=== PATIENT | female | born 1985 | race Caucasian/White ===

== ENCOUNTER 2017-08-28 12:02 | Inpatient (IN) | payer MEDICAID ==
[2017-08-28] VITALS (8 sets, daily range): BP systolic 109–135; BP diastolic 58–77
[~2017-08-28] VITALS: Ht 172.7 cm; Wt 60.0 kg
[2017-08-28 12:54] LABS: URINE BILIRUBIN - DIPSTICK NEGATIVE (NEGATIVE); URINE BLOOD DIPSTICK TRACE-INTACT (NEGATIVE); URINE COLOR YELLOW; URINE GLUCOSE - DIPSTICK 500 mg/dL (NEGATIVE); URINE KETONE >=80 mg/dL (NEGATIVE); URINE LEUK ESTERASE NEGATIVE (NEGATIVE); URINE NITRITE - DIPSTICK NEGATIVE (Negative); URINE PH 5.5 (4.5-8.0); URINE PROTEIN - DIPSTICK 30 mg/dL (NEG-TRACE); URINE SPECIFIC GRAVITY >=1.030; URINE UROBILINOGEN - DIPSTICK 0.2 E.U./dL (0.2)
[2017-08-28 12:56] LABS: URINE CLARITY HAZY
[2017-08-28 13:03] LABS: URINE RBC 0-2 RBC/hpf (0-5); URINE SQUAMOUS EPITHELIAL CELL MANY EPI/hpf (0-FEW); URINE WBC 0-2 WBC/hpf (0-5)
[2017-08-28 13:47] LABS: HEMATOCRIT 43.3 % (37.0-47.0); HEMOGLOBIN 14.1 g/dl (12.0-16.0); IMMATURE GRANULOCYTES 0.5 % (0.0-1.0); MEAN CELL VOLUME 107.7 fL CALC (80.0-100.0); MEAN CORPUSCULAR HGB 35.1 pG CALC (26.0-32.0); MEAN CORPUSCULAR HGB CONC 32.6 g/L CALC (32.0-36.0); NEUT# 17.49 thou/uL (2.00-7.15); RED BLOOD COUNT 4.02 mill/uL (4.20-5.60); RED CELL DISTRI WIDTH 11.9 % (11.5-15.5)
[2017-08-28 14:03] LABS: ALKALINE PHOSPHATASE 158 u/l (38-126); BILIRUBIN, TOTAL 0.7 mg/dL (0.0-1.4); BUN 15 mg/dL (7-17); BUN/CREATININE RATIO 19 (12-20 (CALC)); CALCIUM 9.4 mg/dL (8.4-10.2); CHLORIDE 105 mmol/l (95-108); CREATININE 0.8 mg/dL (0.5-1.0); GFR > 60 ML/MIN (>=60 (CALC)); GFR FOR AFR.AMER. > 60 ML/MIN (>=60 (CALC)); GLUCOSE 356 mg/dL (65-105); LIPASE 29 u/l (23-300); SGOT/AST 57 u/l (14-36); SGPT/ALT 64 u/l (9-52); SODIUM 142 mmol/l (137-146); TOTAL PROTEIN 7.8 g/dL (6.3-8.2)
[2017-08-28 14:03] LABS: BARBITURATES NEGATIVE (NEGATIVE); COCAINE NEGATIVE (NEGATIVE); METHADONE NEGATIVE (NEGATIVE); OXCYCODONE NEGATIVE (NEGATIVE); TETRAHYDROCANNABIONOL NEGATIVE (NEGATIVE); TRICYLIC ANTIDEPRESSANTS NEGATIVE (NEGATIVE)
[2017-08-28] MEDS ORDERED: LANTUS100 UNIT/M SC (14:10)
[2017-08-28] MEDS ORDERED: NOVOLIN 70/30 SC (14:13)
[2017-08-28] MEDS ORDERED: NOVOLIN R RELION SC (14:14)
[2017-08-28 14:20] LABS: POTASSIUM 5.6 mmol/l (3.5-5.1)
[2017-08-28 14:21] LABS: ANION GAP 38 (6-22 (CALC)); CARBON DIOXIDE 5 mmol/l (22-30)
[2017-08-28 20:00] LABS: ANION GAP 24 (6-22 (CALC)); BUN 9 mg/dL (7-17); BUN/CREATININE RATIO 15 (12-20 (CALC)); CALCIUM 7.7 mg/dL (8.4-10.2); CHLORIDE 111 mmol/l (95-108); CREATININE 0.6 mg/dL (0.5-1.0); GFR > 60 ML/MIN (>=60 (CALC)); GFR FOR AFR.AMER. > 60 ML/MIN (>=60 (CALC)); GLUCOSE 159 mg/dL (65-105); MAGNESIUM 1.4 mg/dL (1.6-2.3); POTASSIUM 4.8 mmol/l (3.5-5.1); SODIUM 139 mmol/l (137-146)
[2017-08-28 20:04] LABS: CARBON DIOXIDE 9 mmol/l (22-30)
[2017-08-29] VITALS (11 sets, daily range): BP systolic 119–142; BP diastolic 46–81
[2017-08-29 05:08] LABS: HEMATOCRIT 35.7 % (37.0-47.0); HEMOGLOBIN 12.3 g/dl (12.0-16.0); MEAN CELL VOLUME 102.3 fL CALC (80.0-100.0); MEAN CORPUSCULAR HGB 35.2 pG CALC (26.0-32.0); MEAN CORPUSCULAR HGB CONC 34.5 g/L CALC (32.0-36.0); RED BLOOD COUNT 3.49 mill/uL (4.20-5.60); RED CELL DISTRI WIDTH 11.9 % (11.5-15.5)
[2017-08-29 05:26] LABS: ALBUMIN 2.8 g/dL (3.2-5.0); ANION GAP 11 (6-22 (CALC)); BUN 6 mg/dL (7-17); BUN/CREATININE RATIO 11 (12-20 (CALC)); CALCIUM 7.6 mg/dL (8.4-10.2); CARBON DIOXIDE 20 mmol/l (22-30); CHLORIDE 111 mmol/l (95-108); CREATININE 0.5 mg/dL (0.5-1.0); GFR > 60 ML/MIN (>=60 (CALC)); GFR FOR AFR.AMER. > 60 ML/MIN (>=60 (CALC)); GLUCOSE 158 mg/dL (65-105); MAGNESIUM 2.3 mg/dL (1.6-2.3); POTASSIUM 3.9 mmol/l (3.5-5.1); SODIUM 138 mmol/l (137-146)
[2017-08-29] MEDS ORDERED: VITAMIN B-121000 MCG PO (09:29)
== END 2017-08-29 10:45 | disposition home or self-care (01) | DRG 639 ==
LOC: ED 12:02 → ED-I 13:43 → ED 14:27 → ICU 14:28
PROVIDERS: Family Medicine; ADMIT Internal Medicine; ATTEND Internal Medicine
PROC: 02HV33Z Insertion of Infusion Device into Superior Vena Cava, Percutaneous Approach (ICD-10-PCS; principal; 2017-08-28)
PROC: 3E0234Z Introduction of Serum, Toxoid and Vaccine into Muscle, Percutaneous Approach (ICD-10-PCS; 2017-08-29)
PROC: 3E0234Z Introduction of Serum, Toxoid and Vaccine into Muscle, Percutaneous Approach (ICD-10-PCS; 2017-08-29)
DX: E11.10 Type 2 diabetes mellitus with ketoacidosis without coma (principal); D75.89 Other specified diseases of blood and blood-forming organs; F17.210 Nicotine dependence, cigarettes, uncomplicated; Z79.4 Long term (current) use of insulin; Z23 Encounter for immunization
CPT/HCPCS: J1650

== ENCOUNTER 2017-12-10 09:11 | Inpatient (IN) | payer OTHER ==
[2017-12-10] VITALS (16 sets, daily range): BP systolic 98–127; BP diastolic 53–66
[~2017-12-10] VITALS: Ht 172.7 cm; Wt 59.0 kg
[~2017-12-10 09:11] MED LIST: LANTUS100 UNIT/M SC; NOVOLIN 70/30 SC; NOVOLIN R RELION SC; VITAMIN B-121000 MCG PO
--- NOTE | 2017-12-10 09:26 | NUR ---
PT TO ROOM FOR EXAM
[2017-12-10 10:10] LABS: HEMATOCRIT 42.7 % (37.0-47.0); HEMOGLOBIN 14.4 g/dl (12.0-16.0); IMMATURE GRANULOCYTES 0.5 % (0.0-1.0); MEAN CELL VOLUME 105.7 fL CALC (80.0-100.0); MEAN CORPUSCULAR HGB 35.6 pG CALC (26.0-32.0); MEAN CORPUSCULAR HGB CONC 33.7 g/L CALC (32.0-36.0); NEUT# 6.43 thou/uL (2.00-7.15); RED BLOOD COUNT 4.04 mill/uL (4.20-5.60); RED CELL DISTRI WIDTH 12.3 % (11.5-15.5)
--- NOTE | 2017-12-10 10:10 | NUR ---
REPORT RECVD FROM BACILIO STALLINGS. EKG COMPLETED. LR IVF RUNNING IN 20G IV ON RIGHT WRIST. PT RESTING W/FRIEND AT BEDSIDE. CALLBELL W/IN REACH.
[2017-12-10 10:20] LABS: ALBUMIN 5.2 g/dL (3.2-5.0); ALKALINE PHOSPHATASE 188 u/l (38-126); BILIRUBIN, TOTAL 0.6 mg/dL (0.0-1.4); BUN 13 mg/dL (7-17); BUN/CREATININE RATIO 19 (12-20 (CALC)); CALCIUM 9.9 mg/dL (8.4-10.2); CHLORIDE 104 mmol/l (95-108); CREATININE 0.7 mg/dL (0.5-1.0); GFR > 60 ML/MIN (>=60 (CALC)); GFR FOR AFR.AMER. > 60 ML/MIN (>=60 (CALC)); GLUCOSE 391 mg/dL (65-105); LIPASE 27 u/l (23-300); SGOT/AST 71 u/l (14-36); SGPT/ALT 57 u/l (9-52); SODIUM 139 mmol/l (137-146); TOTAL PROTEIN 7.8 g/dL (6.3-8.2)
[2017-12-10 10:20] LABS: URINE BILIRUBIN - DIPSTICK NEGATIVE (NEGATIVE); URINE BLOOD DIPSTICK NEGATIVE (NEGATIVE); URINE COLOR YELLOW; URINE GLUCOSE - DIPSTICK 500 mg/dL (NEGATIVE); URINE KETONE >=80 mg/dL (NEGATIVE); URINE LEUK ESTERASE NEGATIVE (NEGATIVE); URINE NITRITE - DIPSTICK NEGATIVE (Negative); URINE PH 5.5 (4.5-8.0); URINE PROTEIN - DIPSTICK TRACE mg/dL (NEG-TRACE); URINE SPECIFIC GRAVITY >=1.030; URINE UROBILINOGEN - DIPSTICK 0.2 E.U./dL (0.2)
[2017-12-10 10:25] LABS: URINE CLARITY CLEAR
[2017-12-10 10:26] LABS: POTASSIUM 5.2 mmol/l (3.5-5.1)
[2017-12-10 10:27] LABS: ANION GAP 34 (6-22 (CALC)); CARBON DIOXIDE 6 mmol/l (22-30)
[2017-12-10] MEDS ORDERED: BUSPAR5 MG PO (10:52)
--- NOTE | 2017-12-10 11:25 | NUR ---
UNABLE TO ESTABLISH A 2ND IV. PT STATES SHE HAS A PIERCE AND IS CURLED UP INTO A BALL, TO HID HER FACE. LIGHTS DIMMED, NOISE REDUCED. WILL CONTINUE TO MONITOR
--- NOTE | 2017-12-10 11:41 | NUR ---
Admission Note Report Given to: MAYELIN Transported by: Wheelchair X Stretcher Transported with: X Nurse Transporter X Patent IV O2 X Legal Executive Assistant
--- NOTE | 2017-12-10 11:52 | NUR ---
female pt received to ICU bed 5 via stretcher accompanied by Fariba Lizama, RN in stable condition; ambulatory to scale, bathroom then bed with steady gait; admission assessment completed at this time; pt alert and oriented; c/c of "vomiting since 3 am"; admits to headache rating 09/07; pt states improvement from 17/09; resp even and unlabored; lungs clear bilat; skin color wnl; ra; hr reg; pulses present; no edema noted; sr on monitor; abd soft with bs present; pt reports last bm 12/09/17; voiding clear yellow urine without complication; #20 in lfa patent with lr bolus infusing without complication; insulin gtt at 3 units/hr; no redness or edema noted at site; plan of care/ hourly accuchecks explained; call light within reach; will contine to monitor closely
--- NOTE | 2017-12-10 12:01 | NUR ---
accucheck of 282; insulin gtt titrated as per protocol; will continue to monitor
--- NOTE | 2017-12-10 12:11 | NUR ---
PT TRANSFERED TO ICU #5. RN @ BEDSIDE. PT AMBULATED FROM STRETCHER TO STRETCHER WITHOUT DIFFICULTY.
--- NOTE | 2017-12-10 12:20 | NUR ---
PT ARRIVES FROM ER VIA STRETCHER, ALERT AND ORIENTED X 3. PT AMBULATORY TO BED FROM STRETCHER. BS 282 UPON ARRIVAL, INSULIN DRIP TITRATED DOWN TO 3 UNITS HOURLY. PT STATES HEADACHE AND NAUSEA ARE MUCH IMPROVED AFTER MEDS GIVEN IN ER.
--- NOTE | 2017-12-10 13:20 | NUR ---
KIRSTNI Diop contacted in regards to orders/meds/fluids; orders to be placed
[2017-12-10 13:54] LABS: ANION GAP 29 (6-22 (CALC)); BUN 12 mg/dL (7-17); BUN/CREATININE RATIO 20 (12-20 (CALC)); CALCIUM 8.8 mg/dL (8.4-10.2); CHLORIDE 110 mmol/l (95-108); CREATININE 0.6 mg/dL (0.5-1.0); GFR > 60 ML/MIN (>=60 (CALC)); GFR FOR AFR.AMER. > 60 ML/MIN (>=60 (CALC)); GLUCOSE 161 mg/dL (65-105); MAGNESIUM 1.6 mg/dL (1.6-2.3); SODIUM 141 mmol/l (137-146)
[2017-12-10 13:58] LABS: CARBON DIOXIDE 7 mmol/l (22-30)
--- NOTE | 2017-12-10 14:00 | NUR ---
Dr Chakraborty and KIRSTIN Goff at bedside
[2017-12-10 14:15] LABS: CHOLESTEROL HDL RATIO 3.2 (<4.4 (CALC))
--- NOTE | 2017-12-10 14:17 | NUR ---
awake; offers no complaints; offers no complaints of headache; no n/v noted; iv patent; no redness or edema noted at site; sr on monitor; po fluids provided; call light within reach; will continue to monitor
--- NOTE | 2017-12-10 15:14 | NUR ---
accucheck 101; Dr Chakraborty notified; for change of ivf; orders to be placed
--- NOTE | 2017-12-10 16:07 | NUR ---
asleep; easily aroused; offers no complaints; iv patent; accucheck 110; insulin gtt cont at 1 unit/hr; no redness or edema noted at site; sr on monitor; call light within reach; will continue to monitor
[2017-12-10 17:46] LABS: POTASSIUM 4.7 mmol/l (3.5-5.1)
--- NOTE | 2017-12-10 18:05 | NUR ---
awake in bed; visitors at bedside; no distress noted; pt offers no complaints; denies headache; no n/v noted; iv patent; no redness or edema noted at site; insulin gtt cont per protocol; sr on monitor; bed in lowest position; call light within reach
--- NOTE | 2017-12-10 18:43 | NUR ---
KIRSTIN Diop at bedside
--- NOTE | 2017-12-10 18:45 | NUR ---
RECEIVED REPORT FROM BACILIO ALCOCER. KIRSTIN GIBBS, AT BEDSIDE DISCUSSING WITH PT PLAN OF CARE.
--- NOTE | 2017-12-10 19:30 | NUR ---
SIGNIFICANT OTHER IN PT ROOM TO VISIT. NO DISTRESS NOTED, DENIES N/V OR PAIN, SR ON MONITOR, HR STABLE, AFEBRILE, SKIN IS WARM AND DRY, ACYANOTIC, ASSISTED PT TO BSC, STEADY GAIT NOTED, LUNGS ELY ARE CLEAR ON AUSCULTATION, STRONG HEAD TURBINE OPERATOR AND PULSES, DENIES FEELING WEAK, OR LIGHTHEADEDNESS, ABD IS SOFT, NONTENDER TO TOUCH, BS X4QUAD, IV SITE IS FREE OF REDNESS OR EDEMA, INFUSING INSULIN DRIP AT 2UNITS/HR PER PROTOCOL, LAST ACCU CHECK 158, VOIDED 800CC OF CLEAR YELLOW URINE, NO BM NOTED AT THIS TIME. EXPLAINED CALL GARCIA, DIET, MED SCHEDULE AND PLAN OF CARE VOICES UNDERSTANDING, WILL CONTINUE TO MONITOR CALL GARCIA AT REACH.
--- NOTE | 2017-12-10 20:14 | NUR ---
NOTIFIED KIRSTIN GIBBS, OF INSULIN DRIP D'C BY PHARMACY BECAUSE OF SLIDING SCALE ORDER AND DISCUSSED PT STATUS AND PREVIOUS LAB RESULTS, ORDERS TO NOTIFY HER OF ELECTROLYTES LAB RESULTS TO BE DRAWN AT 2100.
--- NOTE | 2017-12-10 20:45 | NUR ---
MIX HOUSE TENDER IN PT ROOM DRAWING BLOOD SAMPLE.
--- NOTE | 2017-12-10 21:00 | NUR ---
FINGERSTICK ACCU CHECK 145, PT REPORTS NO COMPLAINTS, DENIES NEEDS, STATES IS HUNGRY AND WANTS TO EAT AND DRINK, WILL NOTIFY KIRSTIN GIBBS. D5NS INFUSING WITHOUT DIFFICULTY AT 150ML/HR PER EMAR, IV SITE IS FREE OF S/S OF INFILTRATION.
--- NOTE | 2017-12-10 21:45 | NUR ---
ELECTROLYTES RESULTS CALLED TO KIRSTIN GIBBS. ORDER TO ADMINISTER 20 UNITS NOVOLIN 70/30 SC X1 DOSE NOW, AND COVER PER SLIDING SCALE DOSE.
--- NOTE | 2017-12-10 22:10 | NUR ---
ADMNISTERED 20 UNITS OF NOVOLIN 70/30 SC PER EMAR, PT DENIES N/V, STATES "I AM VERY HUNGRY, PROVIDED SOME WATER AND ICE CHIPS, TOLERATED WELL, PROVIDED S TURKEY SANDWICH, TOLERATING WELL AT THIS TIME WILL CONTINUE TO MONITOR. ENCOURAGED TO CALL IF NEEDED. CALL GARCIA AT REACH.
--- NOTE | 2017-12-10 22:23 | NUR ---
PT CONTINUES DENYING ANY N/V, TOLERATED SNACK WELL, WILL CONTINUE TO MONITOR.
[2017-12-11] VITALS (12 sets, daily range): BP systolic 96–121; BP diastolic 56–77
--- NOTE | 2017-12-11 01:44 | NUR ---
PT APPEARS TO BE SLEEPING IN BED WITH EYES CLOSED, AROUSES TO VERBAL STIMULI, VOICES NO COMPLAINTS, RESP ARE EVEN AND UNLABORED, VSS, DENIES N/V OR PAIN, DENIES ASSISTANCE NEEDED AT THIS TIME.
--- NOTE | 2017-12-11 04:12 | NUR ---
PT VOICES NO COMPLAINTS, MONITOR SHOWS SR, VSS, D5NS INFUSING WITHOUT DIFFICULTY, WILL CONTINUE TO MONITOR.
[2017-12-11 05:12] LABS: HEMATOCRIT 36.9 % (37.0-47.0); HEMOGLOBIN 12.7 g/dl (12.0-16.0); IMMATURE GRANULOCYTES 0.2 % (0.0-1.0); MEAN CELL VOLUME 103.4 fL CALC (80.0-100.0); MEAN CORPUSCULAR HGB 35.6 pG CALC (26.0-32.0); MEAN CORPUSCULAR HGB CONC 34.4 g/L CALC (32.0-36.0); NEUT# 2.56 thou/uL (2.00-7.15); RED BLOOD COUNT 3.57 mill/uL (4.20-5.60); RED CELL DISTRI WIDTH 12.3 % (11.5-15.5)
[2017-12-11 05:22] LABS: ANION GAP 15 (6-22 (CALC)); BUN 8 mg/dL (7-17); BUN/CREATININE RATIO 15 (12-20 (CALC)); CALCIUM 8.4 mg/dL (8.4-10.2); CARBON DIOXIDE 15 mmol/l (22-30); CHLORIDE 113 mmol/l (95-108); CREATININE 0.5 mg/dL (0.5-1.0); GFR > 60 ML/MIN (>=60 (CALC)); GFR FOR AFR.AMER. > 60 ML/MIN (>=60 (CALC)); GLUCOSE 214 mg/dL (65-105); POTASSIUM 4.1 mmol/l (3.5-5.1); SODIUM 139 mmol/l (137-146)
--- NOTE | 2017-12-11 06:48 | NUR ---
D5NS ON HOLD D/T LAB GLUCOSE 214, SWITCHED TO NS 125ML/HR, PT OFFERS NO COMPLAINTS, DRINKING PO FLUIDS WITHOUT DIFFICULTY, DENIES PAIN, NAUSEA OR VOMITING. ENCOURAGED TO CALL IF NEEDED.
--- NOTE | 2017-12-11 07:16 | NUR ---
pt noted asleep; no distress noted; easily arousable to verbal stimuli; assessment completed at this time; pt alert and oriented x3; complaints of headache rating 10/10; denies n/v; resp even and unlabored; lungs clear throughout; skin color wnl; ra; hr reg; sr on monitor; pulses present; no edema noted; abd soft with bs present; no bm noted per screenplay writer; pt tolerating po intake well; voiding without pain or burning; clear yellow urine noted; #20 in lfa patent with ns infusing at 125cc/hr; no redness or edema noted at site; accucheck of 306; insulin to be administered; plan of care/ am meds explained; pt encouraged to use call light; will continue to monitor closely
--- NOTE | 2017-12-11 08:05 | NUR ---
awake; medicated with tylenol for complaints of headache; eating breakfast at this time; no n/v noted; sr on monitor; iv patent; no redness or edema noted at site; call light within reach; will continue to monitor
--- NOTE | 2017-12-11 08:59 | NUR ---
resting on right side with eyes closed; no distress noted; sr on monitor; will continue to monitor
--- NOTE | 2017-12-11 09:54 | NUR ---
resting in supine position with eyes closed; no distress noted; resp even and unlabored; sr on monitor; iv patent; no redness or edema noted at site; call light within reach; will continue to monitor
--- NOTE | 2017-12-11 10:20 | NUR ---
accucheck 247; Dr Olson at bedside and aware of accucheck results
--- NOTE | 2017-12-11 11:24 | NUR ---
awake; visitor at bedside; pt tolerating lunch; will continue to monitor
--- NOTE | 2017-12-11 12:00 | NUR ---
pt tolerated 100% of lunch; denies and pain/n/v; pt eager to go home; father at bedside
--- NOTE | 2017-12-11 12:15 | NUR ---
discharge instructions reviewed with pt and father; Dr Chakraborty office card provided; accucheck reassessed at 197; am meds/meds administered reviewed; pt aware to recheck accucheck at dinner and medicate with insulin accordingly; #20 removed from lfa with catheter intact;
--- NOTE | 2017-12-11 12:25 | NUR ---
Discharge instructions given. Patient verbalizes understanding of same. Discharged in stable condition via Wheelchair to Home with father. All belongings sent with pt.
== END 2017-12-11 12:25 | disposition home or self-care (01) | DRG 639 ==
LOC: ED 09:11 → ED-I 11:03 → ED 11:14 → ICU 11:15
PROVIDERS: Family Medicine; Nurse Practitioner Family; ADMIT Internal Medicine; ATTEND Internal Medicine
DX: E10.10 Type 1 diabetes mellitus with ketoacidosis without coma (principal); E86.0 Dehydration; F17.210 Nicotine dependence, cigarettes, uncomplicated; F41.9 Anxiety disorder, unspecified; Z79.4 Long term (current) use of insulin; Z91.19 Patient's noncompliance with other medical treatment and regimen

== ENCOUNTER 2019-03-30 19:36 | Emergency (ER) | payer SELFPAY ==
[~2019-03-30] VITALS: Ht 172.7 cm; Wt 64.0 kg
[~2019-03-30 19:36] MED LIST changes: +BUSPAR5 MG PO
[2019-03-30] MEDS ORDERED: ADDERALL30 MG PO (20:47)
[2019-03-30 20:50] VITALS: BP 131/88
== END 2019-03-30 20:50 | disposition home or self-care (01) | DRG 605 ==
LOC: ED 19:36
DX: S61.210A Laceration without foreign body of right index finger without damage to nail, initial encounter (principal); F17.210 Nicotine dependence, cigarettes, uncomplicated; W26.8XXA Contact with other sharp object(s), not elsewhere classified, initial encounter; Y92.009 Unspecified place in unspecified non-institutional (private) residence as the place of occurrence of the external cause

== ENCOUNTER 2019-11-07 19:18 | Emergency (ER) | payer SELFPAY ==
[~2019-11-07] VITALS: Ht 172.7 cm; Wt 68.0 kg
[~2019-11-07 19:18] MED LIST changes: +ADDERALL30 MG PO
[2019-11-07 20:32] LABS: HEMATOCRIT 39.6 % (37.0-47.0); HEMOGLOBIN 13.9 g/dl (12.0-16.0); IMMATURE GRANULOCYTES 0.2 % (0.0-5.0); MEAN CELL VOLUME 97.8 fL CALC (80.0-100.0); MEAN CORPUSCULAR HGB 34.3 pG CALC (26.0-32.0); MEAN CORPUSCULAR HGB CONC 35.1 g/L CALC (32.0-36.0); NEUT# 2.97 thou/uL (2.00-7.15); RED BLOOD COUNT 4.05 mill/uL (4.20-5.60); RED CELL DISTRI WIDTH 11.7 % (11.5-15.5)
[2019-11-07 20:33] LABS: URINE BLOOD DIPSTICK LARGE (NEGATIVE); URINE COLOR YELLOW; URINE GLUCOSE - DIPSTICK >=1000 mg/dL (NEGATIVE); URINE KETONE 15 mg/dL (NEGATIVE); URINE LEUK ESTERASE NEGATIVE (NEGATIVE); URINE NITRITE - DIPSTICK NEGATIVE (Negative); URINE PROTEIN - DIPSTICK NEGATIVE (NEG-TRACE); URINE SPECIFIC GRAVITY 1.025; URINE UROBILINOGEN - DIPSTICK 0.2 E.U./dL (0.2)
[2019-11-07 20:35] LABS: URINE BILIRUBIN - DIPSTICK NEGATIVE (NEGATIVE)
[2019-11-07 20:42] LABS: URINE SQUAMOUS EPITHELIAL CELL FEW EPI/hpf (0-FEW)
[2019-11-07 20:49] LABS: ALBUMIN 4.4 g/dL (3.2-5.0); ALKALINE PHOSPHATASE 109 u/l (38-126); AMYLASE 34 u/l (30-110); BILIRUBIN, TOTAL 0.4 mg/dL (0.0-1.4); BUN 10 mg/dL (7-17); BUN/CREATININE RATIO 21 (12-20 (CALC)); CREATININE 0.5 mg/dL (0.5-1.0); GFR > 60 ML/MIN (>=60 (CALC)); GFR FOR AFR.AMER. > 60 ML/MIN (>=60 (CALC)); LIPASE 42 u/l (23-300); POTASSIUM 3.7 mmol/l (3.5-5.1); SGOT/AST 25 u/l (14-36); SODIUM 135 mmol/l (137-146); TOTAL PROTEIN 6.9 g/dL (6.3-8.2)
[2019-11-07 20:53] LABS: ANION GAP 18 (6-22 (CALC)); CARBON DIOXIDE 24 mmol/l (22-30); CHLORIDE 97 mmol/l (95-108)
[2019-11-07] MEDS ORDERED: CEPHALEXIN500 MG PO (21:53)
[2019-11-07 22:24] LABS: BARBITURATES NEGATIVE (NEGATIVE); COCAINE NEGATIVE (NEGATIVE); METHADONE NEGATIVE (NEGATIVE); OXCYCODONE NEGATIVE (NEGATIVE); TETRAHYDROCANNABIONOL NEGATIVE (NEGATIVE); TRICYLIC ANTIDEPRESSANTS NEGATIVE (NEGATIVE)
[2019-11-07] MEDS ORDERED: FLEXERIL PO (23:24)
[2019-11-07] MEDS ORDERED: ULTRAM50 M1 PO (23:24)
[2019-11-08] MEDS ORDERED: CLONIDINE0.1 MG PO (00:43)
[2019-11-08 01:03] VITALS: BP 148/98
== END 2019-11-08 01:01 | disposition home or self-care (01) | DRG 556 ==
LOC: ED 19:18
PROVIDERS: Emergency Medicine
DX: M79.18 Myalgia, other site (principal); N39.0 Urinary tract infection, site not specified; I10 Essential (primary) hypertension; E11.9 Type 2 diabetes mellitus without complications; F17.210 Nicotine dependence, cigarettes, uncomplicated; Z79.4 Long term (current) use of insulin
CPT/HCPCS: Q9967

== ENCOUNTER 2020-02-26 | Emergency (ER) | payer BC ==
[~2020-02-26] MED LIST changes: +CEPHALEXIN500 MG PO; +CLONIDINE0.1 MG PO; +FLEXERIL PO; +ULTRAM50 M1 PO
[2020-02-26] MEDS ORDERED: HUMALOG100 MG/ML IN (17:22)
[2020-02-26 17:43] LABS: HEMATOCRIT 40.3 % (37.0-47.0); HEMOGLOBIN 13.6 g/dl (12.0-16.0); IMMATURE GRANULOCYTES 0.4 % (0.0-5.0); MEAN CELL VOLUME 100.2 fL CALC (80.0-100.0); MEAN CORPUSCULAR HGB 33.8 pG CALC (26.0-32.0); MEAN CORPUSCULAR HGB CONC 33.7 g/dL CAL (32.0-36.0); NEUT# 6.19 thou/uL (2.00-7.15); RED BLOOD COUNT 4.02 mill/uL (4.20-5.60); RED CELL DISTRI WIDTH 12.7 % (11.5-15.5)
[2020-02-26 18:00] LABS: ALBUMIN 4.7 g/dL (3.2-5.0); ALKALINE PHOSPHATASE 108 u/l (38-126); ANION GAP 19 (6-22 (CALC)); BUN 16 mg/dL (7-17); BUN/CREATININE RATIO 35 (12-20 (CALC)); CARBON DIOXIDE 21 mmol/l (22-30); CHLORIDE 97 mmol/l (95-108); CREATININE 0.5 mg/dL (0.5-1.0); GFR > 60 ML/MIN (>=60 (CALC)); GFR FOR AFR.AMER. > 60 ML/MIN (>=60 (CALC)); POTASSIUM 4.4 mmol/l (3.5-5.1); SODIUM 132 mmol/l (137-146); TOTAL PROTEIN 7.9 g/dL (6.3-8.2)
[2020-02-26 18:07] LABS: URINE BILIRUBIN - DIPSTICK NEGATIVE (NEGATIVE); URINE BLOOD DIPSTICK NEGATIVE (NEGATIVE); URINE COLOR YELLOW; URINE GLUCOSE - DIPSTICK >=1000 mg/dL (NEGATIVE); URINE KETONE 15 mg/dL (NEGATIVE); URINE LEUK ESTERASE NEGATIVE (NEGATIVE); URINE NITRITE - DIPSTICK NEGATIVE (Negative); URINE PH 5.5 (4.5-8.0); URINE PROTEIN - DIPSTICK NEGATIVE (NEG-TRACE); URINE UROBILINOGEN - DIPSTICK 0.2 E.U./dL (0.2)
[2020-02-26 18:14] LABS: BILIRUBIN, TOTAL 0.7 mg/dL (0.0-1.4); SGOT/AST 45 u/l (14-36)
== END 2020-02-26 20:05 | disposition home or self-care (01) | DRG 639 ==
DX: E10.65 Type 1 diabetes mellitus with hyperglycemia (principal); M79.18 Myalgia, other site; F17.210 Nicotine dependence, cigarettes, uncomplicated; Z79.4 Long term (current) use of insulin

== ENCOUNTER 2020-03-16 11:57 | Inpatient (IN) | payer BC ==
[2020-03-16] VITALS (11 sets, daily range): BP systolic 118–137; BP diastolic 59–83
[~2020-03-16] VITALS: Ht 172.7 cm; Wt 69.0 kg
[~2020-03-16 11:57] MED LIST changes: +HUMALOG100 MG/ML IN
--- NOTE | 2020-03-16 12:10 | NUR ---
PT TO ROOM FOR EXAM
--- NOTE | 2020-03-16 12:15 | NUR ---
PT ASSESSED. PT REPORTS ABDOMINAL PAIN STARTING THIS MORNING, NAUSEA AND VOMITING. PT IS DIABETIC AND HER GLUCOMETER READ "HIGH" THIS MORNING. PT AO X 3, SKIN PINK WARM AND DRY. CHANGED TO GOWN. MONITORS IN PLACE
--- NOTE | 2020-03-16 12:30 | NUR ---
PT MEDICATED FOR NAUSEA
--- NOTE | 2020-03-16 12:53 | NUR ---
NO FURTHER COMPLAINTS OF NAUSEA
[2020-03-16 13:04] LABS: HEMATOCRIT 44.9 % (37.0-47.0); HEMOGLOBIN 14.5 g/dl (12.0-16.0); IMMATURE GRANULOCYTES 0.4 % (0.0-5.0); MEAN CELL VOLUME 104.9 fL CALC (80.0-100.0); MEAN CORPUSCULAR HGB 33.9 pG CALC (26.0-32.0); MEAN CORPUSCULAR HGB CONC 32.3 g/dL CAL (32.0-36.0); NEUT# 8.3 thou/uL (2.00-7.15); RED BLOOD COUNT 4.28 mill/uL (4.20-5.60); RED CELL DISTRI WIDTH 11.9 % (11.5-15.5)
[2020-03-16 13:06] LABS: URINE BILIRUBIN - DIPSTICK NEGATIVE (NEGATIVE); URINE BLOOD DIPSTICK NEGATIVE (NEGATIVE); URINE COLOR YELLOW; URINE GLUCOSE - DIPSTICK >=1000 mg/dL (NEGATIVE); URINE KETONE >=80 mg/dL (NEGATIVE); URINE LEUK ESTERASE NEGATIVE (NEGATIVE); URINE NITRITE - DIPSTICK NEGATIVE (Negative); URINE PROTEIN - DIPSTICK NEGATIVE (NEG-TRACE); URINE UROBILINOGEN - DIPSTICK 0.2 E.U./dL (0.2)
[2020-03-16 13:24] LABS: ALBUMIN 4.6 g/dL (3.2-5.0); BILIRUBIN, TOTAL 0.6 mg/dL (0.0-1.4); BUN 14 mg/dL (7-17); BUN/CREATININE RATIO 19 (12-20 (CALC)); CHLORIDE 94 mmol/l (95-108); CREATININE 0.8 mg/dL (0.5-1.0); GFR > 60 ML/MIN (>=60 (CALC)); GFR FOR AFR.AMER. > 60 ML/MIN (>=60 (CALC)); LIPASE 57 u/l (23-300); SGOT/AST 35 u/l (14-36); SODIUM 132 mmol/l (137-146); TOTAL PROTEIN 7.1 g/dL (6.3-8.2)
[2020-03-16 13:34] LABS: ALKALINE PHOSPHATASE 168 u/l (38-126); AMYLASE < 30 u/l (30-110); ANION GAP 34 (6-22 (CALC)); POTASSIUM 5.3 mmol/l (3.5-5.1)
[2020-03-16 13:35] LABS: CARBON DIOXIDE 9 mmol/l (22-30)
[2020-03-16 13:36] LABS: MYOGLOBIN 16 ng/mL (0 - 62)
--- NOTE | 2020-03-16 14:02 | NUR ---
INSULIN BOLUS GIVEN AND INSULIN DRIP STARTED
--- NOTE | 2020-03-16 14:41 | NUR ---
REPORT GIVEN TO D[facility] RIBERA ICU.
[2020-03-16] MEDS ORDERED: METFORMIN500 M2 PO (14:46)
[2020-03-16] MEDS ORDERED: GABAPENTIN100 MG PO (14:47)
--- NOTE | 2020-03-16 14:57 | NUR ---
ACCUCHECK DONE. READING "HIGH"
--- NOTE | 2020-03-16 15:37 | NUR ---
ORDERS RECIEVED FROM .
--- NOTE | 2020-03-16 15:55 | NUR ---
ACCUCHECK 357. DECREASED INSULIN DRIP TO 4ML/HR. PT TAKEN VIA STRETCHER, MONITOR IN PLACE TO ICU
--- NOTE | 2020-03-16 16:00 | NUR ---
PT ADMITTED TO ICU BED 4 FROM ED FOR DX:DKA VIA STRETCHER. PT TRANSFERRED SELF TO BED VIA SLOW STEADY GAIT. PT A&0X4, ABLE TO MAKE NEEDS KNOWN. PT DENIES CP, SOB OR DISTRESS AT THIS TIME. 22GTO RHAND/SL FLUSHED WITHOUT DIFFICULTY, 24 TO RFA WITH INSULIN GTT @4ML/HR. BS 357. PT AFEBRILE, ST ON TELEMETRY, RESPIRATIONS EVEN/UNLABORED, SA02@100%RA, ABDOMEN SOFT, NON-TENDER, BSX4 WITH LBM 4-17-20. PT ORIENTED TO ROOM, UNIT AND CALL LIGHT. PT REMAINS NPO, CALL LIGHT IN REACH. WILL MONITOR.
--- NOTE | 2020-03-16 16:30 | NUR ---
PT ASSISTED TO BSC, VOIDED 1000ML CLEAR YELLOW URINE. PT TOLERATED WELL.
--- NOTE | 2020-03-16 17:22 | NUR ---
NOTIFIED [facility] ORDERS NOT IN JAN, ORIGINALLY FAXED AT [phone]. CALLED [facility], 4X NO ONE ANSWERED THE PHONE. NOTIFIED HOUSE SUP.
--- NOTE | 2020-03-16 17:30 | NUR ---
REFAXED ORDERS TO [facility].
--- NOTE | 2020-03-16 18:00 | NUR ---
LAB AT BEDSIDE FOR BLOOD DRAW.
[2020-03-16 18:22] LABS: BUN 15 mg/dL (7-17); BUN/CREATININE RATIO 23 (12-20 (CALC)); CREATININE 0.6 mg/dL (0.5-1.0); GFR > 60 ML/MIN (>=60 (CALC)); GFR FOR AFR.AMER. > 60 ML/MIN (>=60 (CALC)); POTASSIUM 4.4 mmol/l (3.5-5.1); SODIUM 138 mmol/l (137-146)
[2020-03-16 18:24] LABS: ANION GAP 22 (6-22 (CALC)); CARBON DIOXIDE 12 mmol/l (22-30); CHLORIDE 108 mmol/l (95-108)
--- NOTE | 2020-03-16 19:00 | NUR ---
PATIENT LAYS IN BED, SUPINE. AWAKE, ALERT AND ORIENTED X4. ON RA, SATS 100%, NO SOB NOTED. NURSING ASSESSMENT PERFORMED. DENIES NAUSEA, C/O OF SORE PAIN WHEN PALPATING RIB AREA ON HER SIDES AND ABDOMEN, NO TENDERNESS ON ABDOMEN AREA. R-H 22 G AND RFA 24G IV'S INTACT. POC FOR TONIGHT DISCUSSED, PATIENT UNDERSTANDS AND AGREES. AFEBRILE. SELF REPSOITIONS. CALL LIGHT WITHIN REACH.
--- NOTE | 2020-03-16 21:15 | NUR ---
PATIENT EDUACATED ON LOVENOX INJECTION, UNDERSTANDS AND AGREES. INSULIN DRIP TURNED BACK ON AT 2104 AFTER STOPPED FOR ONE HOUR AND AFTER BS CHECK. ICE PROVIDED. NO NEEDS AT THIS TIME. NO COMPLAINTS. CALL LIGHT WITHIN REACH.
--- NOTE | 2020-03-16 22:00 | NUR ---
[employer] COURTESY CLERK IN ROOM TO DRAW BLOOD.
[2020-03-16 22:30] LABS: ANION GAP 19 (6-22 (CALC)); BUN 12 mg/dL (7-17); BUN/CREATININE RATIO 25 (12-20 (CALC)); CARBON DIOXIDE 12 mmol/l (22-30); CHLORIDE 108 mmol/l (95-108); CREATININE 0.5 mg/dL (0.5-1.0); GFR > 60 ML/MIN (>=60 (CALC)); GFR FOR AFR.AMER. > 60 ML/MIN (>=60 (CALC)); SODIUM 134 mmol/l (137-146)
[2020-03-16 22:35] LABS: POTASSIUM 5.2 mmol/l (3.5-5.1)
--- NOTE | 2020-03-16 23:35 | NUR ---
PATIENT'S BS CHECKED. PATIENT AWAKENS EASILY WHEN SPOKEN TO, NO COMPLAINTS. INSULIN DRIP TITRATED ACCORDING TO PROTOCOL. CALL LIGHT WITHIN REACH.
[2020-03-17] VITALS (17 sets, daily range): BP systolic 119–166; BP diastolic 70–93
--- NOTE | 2020-03-17 02:05 | NUR ---
CATERING BARISTA IN ROOM FOR LABS. PATIENT IN NO ACUTE DISTRESS. CALL LIGHT WITHIN REACH.
[2020-03-17 02:27] LABS: BUN 11 mg/dL (7-17); BUN/CREATININE RATIO 24 (12-20 (CALC)); CHLORIDE 107 mmol/l (95-108); CREATININE 0.5 mg/dL (0.5-1.0); GFR > 60 ML/MIN (>=60 (CALC)); GFR FOR AFR.AMER. > 60 ML/MIN (>=60 (CALC)); SODIUM 134 mmol/l (137-146)
[2020-03-17 02:40] LABS: ANION GAP 12 (6-22 (CALC)); CARBON DIOXIDE 19 mmol/l (22-30); POTASSIUM 3.7 mmol/l (3.5-5.1)
--- NOTE | 2020-03-17 03:35 | NUR ---
BS TAKEN. PATIENT AWAKENS EASILY. ASKS WHAT HER BS IS AND ASKS IF SHE IS STILL ON THE INSULIN DRIP. ALL QUESTIONS ANSWERED. NO NEEDS AT THIS TIME. CALL LIGHT WITHIN REACH.
--- NOTE | 2020-03-17 05:44 | NUR ---
PATIENT BS CHECKED. PATIENT ASKED IF SHE WANTED TO GET UP TO THE BATHROOM, SHE REFUSED, CONTINUES TO SLEEP. NO ACUTE DISTRESS SHOWN. AFEBRILE. CALL LIGHT WITHIN REACH.
[2020-03-17 06:27] LABS: ANION GAP 12 (6-22 (CALC)); BUN 10 mg/dL (7-17); BUN/CREATININE RATIO 22 (12-20 (CALC)); CARBON DIOXIDE 19 mmol/l (22-30); CHLORIDE 106 mmol/l (95-108); CREATININE 0.4 mg/dL (0.5-1.0); GFR > 60 ML/MIN (>=60 (CALC)); GFR FOR AFR.AMER. > 60 ML/MIN (>=60 (CALC)); POTASSIUM 3.4 mmol/l (3.5-5.1); SODIUM 134 mmol/l (137-146)
--- NOTE | 2020-03-17 06:45 | NUR ---
RECIEVED REPORT FROM BACILIO JOHNSON. ASSUMED PT CARE.
--- NOTE | 2020-03-17 07:03 | NUR ---
CALLED LAB, ORDER FOR ADD ON A1C.
--- NOTE | 2020-03-17 07:30 | NUR ---
PT RESTING IN BED, ASSESSMENT COMPLETED, AFEBRILE. RESPIRATIONS EVEN/UNLABORED. 22G RH/SL FLUSHED WITHOUT DIFFICULTY . 24G RFA INFUSING D51/2NS @125ML/HR, TITRATED INSULIN GTT PER PROTOCOL FOR BS 155. PT REMAINS NPO WITH ICE CHIPS.PT DENIES CP, SOB OR DISTRESS AT THIS TIME. CALL LIGHT IN REACH, WILL MONITOR.
--- NOTE | 2020-03-17 08:30 | NUR ---
PT RESTING IN BED WITH EYES CLOSED. BS 163. NO TITRATION ON INSULIN GTT. NEEDED.
--- NOTE | 2020-03-17 09:38 | NUR ---
BS 139. LAB AT BEDSIDE FORM BLOOD DRAW.
[2020-03-17 10:13] LABS: ANION GAP 10 (6-22 (CALC)); BUN 9 mg/dL (7-17); BUN/CREATININE RATIO 23 (12-20 (CALC)); CARBON DIOXIDE 20 mmol/l (22-30); CHLORIDE 106 mmol/l (95-108); CREATININE 0.4 mg/dL (0.5-1.0); GFR > 60 ML/MIN (>=60 (CALC)); GFR FOR AFR.AMER. > 60 ML/MIN (>=60 (CALC)); POTASSIUM 3.5 mmol/l (3.5-5.1); SODIUM 133 mmol/l (137-146)
--- NOTE | 2020-03-17 10:55 | NUR ---
DR. HARE & NERI RUSSELL AT BEDSIDE FOR ASSESSMENT AND TO DISCUSS PLAN OF CARE. NEW ORDERS RECIEVED.
--- NOTE | 2020-03-17 11:30 | NUR ---
PT ASSISTED TO BSC, VOIDED 1200ML YELLOW URINE. PT TOLERATED WELL. DIETARY ON UNIT. LUNCH TRAY SET UP.
--- NOTE | 2020-03-17 12:00 | NUR ---
INSULIN GTT STOPPED.
--- NOTE | 2020-03-17 12:15 | NUR ---
PT COMPLAINT OF SORE THROAT, NOTED REDNESS AT BACK OF THROAT, DR. HARE NOTIFIED, NEW ORDERS RECIEVED.
--- NOTE | 2020-03-17 12:30 | NUR ---
PT THROAT SWABBED FOR STREP A, SENT TO LAB. PT TOLERATED WELL.
--- NOTE | 2020-03-17 13:20 | NUR ---
STREP A LAB BACK, NEGATIVE.
--- NOTE | 2020-03-17 13:58 | NUR ---
PT RESTING IN BED, WATCHING TV. PT NOTIFIED OF NEGATIVE STREP A RESULTS.
--- NOTE | 2020-03-17 15:45 | NUR ---
PT GIVEN SNACK, PER PT REQUEST. RESTING IN BED, DENIES CP, SOB OR DISTRESS AT THIS TIME. CALL LIGHT IN REACH. WILL MONITOR.
--- NOTE | 2020-03-17 16:38 | NUR ---
PT RESTING IN BED WITH EYES CLOSED, RESPIRATIONS EVEN/UNLABORED. CALL LIGHT IN REACH. WILL MONITOR.
--- NOTE | 2020-03-17 17:15 | NUR ---
NOTIFIED DR. HARE OF PT BS 319, AND PT COMPLAINT OF LLE PAIN OF 06/07. NEW ORDERS RECIEVED. CALL LIGHT IN REACH. WILL MONITOR.
--- NOTE | 2020-03-17 17:25 | NUR ---
DIETARY ON UNIT. DINNER TRAY SET UP.
--- NOTE | 2020-03-17 17:59 | NUR ---
PT ASSISTED TO BSC, VOIDED 1000ML CLEAR YELLOW URINE. PT TOLERATED WELL.
--- NOTE | 2020-03-17 19:00 | NUR ---
PATIENT ALERT AND ORIENTED X4, WATCHES TV. NURSING ASSESSMENT PERFORMED. ADMITS TO SORE THROAT WHICH SHE RECEIVED MEDICATION FOR EARLIER AND SHE REPORTS IT HAS HELPED. AFEBRILE, SR ON TELEMETRY. BP WNL. SATS GREATER THAN 95% ON RA, NO SOB NOTED. RFA IV INTACT, MEDICATIONS INFUSING PROPERLY, RH 22G IV TAKEN OUT DUE TO PATIENT COMPLAINS IT IS PAINFUL WHEN FLUSHING. POC FOR TONIGHT DISCUSSED, PATIENT UNDERSTANDS AND AGREES. SELF REPOSITIONS. REQUEST DIET YANETH DIAZ, PROVIDED. CALL LIGHT WITHIN REACH.
--- NOTE | 2020-03-17 20:10 | NUR ---
PATIENT PAYROLL BOOKKEEPER LIGHT TO REQUEST PEANUT BUTTER WITH CRACKERS, PROVIDED. CALL LIGHT WITHIN REACH.
--- NOTE | 2020-03-17 20:45 | NUR ---
PATIENT ABLE TO TOLERATE HER PO BEDTIME MEDICATIONS. LOVENOX AND INSULIN INJEVTIONS WELL. NO COMPLAINTS. NO NEEDS AT THIS TIME. CALL LIGHT WITHIN REACH.
[2020-03-18] VITALS (8 sets, daily range): BP systolic 145–163; BP diastolic 86–98
--- NOTE | 2020-03-18 00:45 | NUR ---
PATIENT RESTS WITH EYES CLOSED. NO ACUTE DSITRESS SHOWN. CALL LIGHT WITHIN REACH.
--- NOTE | 2020-03-18 04:20 | NUR ---
TEMP TAKEN, PATIENT AWAKENS REQUESTS TO GET UP TO USE BSC TO VOID. VOIDS. NOWLAYS BACK IN BED. NO ACUTE DISTRES SHOWN. NO COMPLAINTS. CALL LIGHT WITHIN REACH.
--- NOTE | 2020-03-18 06:27 | NUR ---
PATIENT GIVEN IV PEPCID. IV INTACT. PT REQUESTS A SNACK TO EAT, APPLESAUCE AND BAR PROVIDED, ICE WATER PROVIDED. CALL LIGHT WITHIN REACH
--- NOTE | 2020-03-18 07:40 | NUR ---
ACCUCHECK DONE- BLOOD SUGAR IS 421 ON GLUCOMETER, DR GILL NOTIFIED, NO NEW ORDERS AT THIS TIME
--- NOTE | 2020-03-18 08:00 | NUR ---
PT IN BED READING A BOOK AT THIS TIME. ASSESSED, ALERT AND ORIENTED X4. BLOOD PRESSURE 145/93 HR OF 76, NO EDEMA. PT IS MOBILE AND DENIES PAIN AT THIS TIME. WILL CONTINUE TO MONITOR FOR CHANGES.
--- NOTE | 2020-03-18 08:30 | NUR ---
DR GILL AT BEDSIDE, ORDERED 35 UNITS OF LEVEMIR FOR BLOOD GLUCOSE AT THIS TIME. ORDERED PT DISCHARGE HOME.
[2020-03-18] MEDS ORDERED: LEVEMIR FL100 UNIT/M SC (08:44)
--- NOTE | 2020-03-18 10:20 | NUR ---
DISCHARGE INSTRUCTIONS REVIEWED WITH PT, PT VERBALIZED UNDERSTANDING, HOME MEDICATIONS RETURNED. IV SITE DISCONTINUED, CATHETER TIP INTACT, SKIN INTACT, PT TOLERATED WELL.
--- NOTE | 2020-03-18 11:16 | NUR ---
Discharge instructions given. Patient verbalizes understanding of same. Discharged in stable condition via Wheelchair to Home with family. All belongings sent with pt.
== END 2020-03-18 11:16 | disposition home or self-care (01) | DRG 639 ==
LOC: ED 11:57 → ED-I 13:50 → ED 14:04 → ICU 14:05
PROVIDERS: Emergency Medicine; ADMIT Internal Medicine; ATTEND Internal Medicine
DX: E10.10 Type 1 diabetes mellitus with ketoacidosis without coma (principal); F17.210 Nicotine dependence, cigarettes, uncomplicated; R03.0 Elevated blood-pressure reading, without diagnosis of hypertension; F41.9 Anxiety disorder, unspecified; Z79.4 Long term (current) use of insulin
CPT/HCPCS: J1650

== ENCOUNTER 2020-05-28 19:16 | Emergency (ER) | payer BC ==
[~2020-05-28] VITALS: Ht 172.7 cm; Wt 72.0 kg
[~2020-05-28 19:16] MED LIST changes: +GABAPENTIN100 MG PO; +LEVEMIR FL100 UNIT/M SC; +METFORMIN500 M2 PO
[2020-05-28 21:15] VITALS: BP 146/85
== END 2020-05-28 21:23 | disposition home or self-care (01) | DRG 392 ==
LOC: ED 19:16
DX: K59.00 Constipation, unspecified (principal); E11.9 Type 2 diabetes mellitus without complications; F17.200 Nicotine dependence, unspecified, uncomplicated; Z79.4 Long term (current) use of insulin

== ENCOUNTER 2020-08-16 14:49 | Emergency (ER) | payer BC ==
[~2020-08-16] VITALS: Ht 172.7 cm; Wt 60.0 kg
[2020-08-16 15:39] LABS: HEMATOCRIT 39.9 % (37.0-47.0); HEMOGLOBIN 13.1 g/dl (12.0-16.0); IMMATURE GRANULOCYTES 0.3 % (0.0-5.0); MEAN CORPUSCULAR HGB 32.1 pG CALC (26.0-32.0); MEAN CORPUSCULAR HGB CONC 32.8 g/dL CAL (32.0-36.0); NEUT# 5.08 thou/uL (2.00-7.15); RED BLOOD COUNT 4.08 mill/uL (4.20-5.60); RED CELL DISTRI WIDTH 11.9 % (11.5-15.5)
[2020-08-16 15:40] LABS: URINE BILIRUBIN - DIPSTICK NEGATIVE (NEGATIVE); URINE BLOOD DIPSTICK NEGATIVE (NEGATIVE); URINE COLOR YELLOW; URINE GLUCOSE - DIPSTICK NEGATIVE (NEGATIVE); URINE KETONE TRACE mg/dL (NEGATIVE); URINE LEUK ESTERASE NEGATIVE (NEGATIVE); URINE PROTEIN - DIPSTICK NEGATIVE (NEG-TRACE); URINE SPECIFIC GRAVITY 1.025; URINE UROBILINOGEN - DIPSTICK 0.2 E.U./dL (0.2)
[2020-08-16 15:49] LABS: ALBUMIN 4.2 g/dL (3.2-5.0); ALKALINE PHOSPHATASE 90 u/l (38-126); BUN 8 mg/dL (7-17); BUN/CREATININE RATIO 16 (12-20 (CALC)); CHLORIDE 103 mmol/l (95-108); CREATININE 0.5 mg/dL (0.5-1.0); GFR > 60 ML/MIN (>=60 (CALC)); GFR FOR AFR.AMER. > 60 ML/MIN (>=60 (CALC)); POTASSIUM 3.6 mmol/l (3.5-5.1); SGOT/AST 33 u/l (14-36); SODIUM 138 mmol/l (137-146); TOTAL PROTEIN 6.8 g/dL (6.3-8.2)
[2020-08-16 15:57] LABS: MYOGLOBIN 13 ng/mL (0 - 62)
[2020-08-16 16:00] LABS: ANION GAP 11 (6-22 (CALC)); BILIRUBIN, TOTAL 0.3 mg/dL (0.0-1.4); CARBON DIOXIDE 28 mmol/l (22-30)
[2020-08-16 16:01] LABS: MEAN CELL VOLUME 97.8 fL CALC (80.0-100.0)
[2020-08-16 16:06] LABS: URINE NITRITE - DIPSTICK POSITIVE (Negative)
[2020-08-16 16:07] LABS: URINE BACTERIA MODERATE hpf; URINE EPITHELIAL CELLS FEW EPI/hpf (0-FEW)
[2020-08-16 16:32] LABS: TSH, 3RD GENERATION 2.46 uIU/mL (0.47 - 4.68)
[2020-08-16] MEDS ORDERED: KEFLEX500 M1 PO (17:01)
[2020-08-16 17:11] VITALS: BP 144/88
== END 2020-08-16 17:11 | disposition home or self-care (01) | DRG 880 ==
LOC: ED 14:49
PROVIDERS: Emergency Medicine
DX: F41.9 Anxiety disorder, unspecified (principal); N39.0 Urinary tract infection, site not specified; E11.9 Type 2 diabetes mellitus without complications; F17.210 Nicotine dependence, cigarettes, uncomplicated; B96.20 Unspecified Escherichia coli [E. coli] as the cause of diseases classified elsewhere; Z79.4 Long term (current) use of insulin

== ENCOUNTER 2022-02-17 11:01 | Inpatient (IN) | payer SELFPAY ==
[2022-02-17] VITALS (9 sets, daily range): BP systolic 112–169; BP diastolic 56–98
[~2022-02-17] VITALS: Ht 172.7 cm; Wt 59.0 kg
[~2022-02-17 11:01] MED LIST changes: +KEFLEX500 M1 PO
[2022-02-17 12:08] LABS: IMMATURE GRANULOCYTES 0.5 % (0.0-5.0); MEAN CORPUSCULAR HGB 34.1 pG CALC (26.0-32.0); MEAN CORPUSCULAR HGB CONC 32.7 g/dL CAL (32.0-36.0); NEUT# 14.82 thou/uL (2.00-7.15); RED BLOOD COUNT 4.81 mill/uL (4.20-5.60); RED CELL DISTRI WIDTH 11.7 % (11.5-15.5)
[2022-02-17 12:11] LABS: HEMATOCRIT 50.1 % (37.0-47.0); HEMOGLOBIN 16.4 g/dl (12.0-16.0); MEAN CELL VOLUME 104.2 fL CALC (80.0-100.0)
[2022-02-17 12:16] LABS: ALBUMIN 4.6 g/dL (3.2-5.0); ALKALINE PHOSPHATASE 132 u/l (38-126); BUN 9 mg/dL (7-17); BUN/CREATININE RATIO 10 (12-20 (CALC)); CHLORIDE 101 mmol/l (95-108); CREATININE 0.9 mg/dL (0.5-1.0); GFR > 60 ML/MIN (>=60 (CALC)); GFR FOR AFR.AMER. > 60 ML/MIN (>=60 (CALC)); LIPASE 79 u/l (23-300); SGOT/AST 17 u/l (14-36); SODIUM 132 mmol/l (137-146)
[2022-02-17 12:22] LABS: POTASSIUM 5.7 mmol/l (3.5-5.1)
[2022-02-17 12:24] LABS: ANION GAP 32 (6-22 (CALC)); BILIRUBIN, TOTAL 0.5 mg/dL (0.0-1.4); CARBON DIOXIDE < 5 mmol/l (22-30); TOTAL PROTEIN 8.3 g/dL (6.3-8.2)
[2022-02-17] MEDS ORDERED: ADDERALL30 MG PO (13:47)
[2022-02-17 13:48] LABS: HCG SERUM/URINE (NEG/POS) POSITIVE (NEGATIVE)
[2022-02-17] MEDS ORDERED: ZOLPIDEM5 M1 PO (13:48)
[2022-02-17] MEDS ORDERED: LANTUS100 UNIT SC (13:52)
[2022-02-17 14:04] LABS: URINE BILIRUBIN - DIPSTICK NEGATIVE (NEGATIVE); URINE BLOOD DIPSTICK TRACE-INTACT (NEGATIVE); URINE COLOR YELLOW; URINE GLUCOSE - DIPSTICK >=1000 mg/dL (NEGATIVE); URINE KETONE >=80 mg/dL (NEGATIVE); URINE LEUK ESTERASE NEGATIVE (NEGATIVE); URINE PH 5.5 (4.5-8.0); URINE PROTEIN - DIPSTICK TRACE mg/dL (NEG-TRACE); URINE SPECIFIC GRAVITY 1.025; URINE UROBILINOGEN - DIPSTICK 0.2 E.U./dL (0.2)
[2022-02-17 14:05] LABS: URINE NITRITE - DIPSTICK NEGATIVE (Negative)
[2022-02-17 16:37] LABS: BUN 9 mg/dL (7-17); BUN/CREATININE RATIO 13 (12-20 (CALC)); CHLORIDE 106 mmol/l (95-108); CREATININE 0.7 mg/dL (0.5-1.0); GFR > 60 ML/MIN (>=60 (CALC)); GFR FOR AFR.AMER. > 60 ML/MIN (>=60 (CALC)); SODIUM 132 mmol/l (137-146)
[2022-02-17 16:38] LABS: ANION GAP 25 (6-22 (CALC)); POTASSIUM 4.5 mmol/l (3.5-5.1)
[2022-02-17 16:39] LABS: CARBON DIOXIDE 6 mmol/l (22-30)
[2022-02-17 20:31] LABS: ANION GAP 18 (6-22 (CALC)); BUN 8 mg/dL (7-17); BUN/CREATININE RATIO 14 (12-20 (CALC)); CARBON DIOXIDE 11 mmol/l (22-30); CHLORIDE 105 mmol/l (95-108); CREATININE 0.6 mg/dL (0.5-1.0); GFR > 60 ML/MIN (>=60 (CALC)); GFR FOR AFR.AMER. > 60 ML/MIN (>=60 (CALC)); POTASSIUM 4.1 mmol/l (3.5-5.1); SODIUM 130 mmol/l (137-146)
[2022-02-18] VITALS (47 sets, daily range): BP systolic 104–139; BP diastolic 58–81
[2022-02-18 00:36] LABS: BUN 7 mg/dL (7-17); BUN/CREATININE RATIO 14 (12-20 (CALC)); CHLORIDE 105 mmol/l (95-108); CREATININE 0.5 mg/dL (0.5-1.0); GFR > 60 ML/MIN (>=60 (CALC)); GFR FOR AFR.AMER. > 60 ML/MIN (>=60 (CALC)); SODIUM 131 mmol/l (137-146)
[2022-02-18 00:39] LABS: ANION GAP 15 (6-22 (CALC)); POTASSIUM 3.7 mmol/l (3.5-5.1)
[2022-02-18 00:41] LABS: CARBON DIOXIDE 15 mmol/l (22-30)
[2022-02-18 05:49] LABS: MEAN CELL VOLUME 98.9 fL CALC (80.0-100.0); MEAN CORPUSCULAR HGB 34.7 pG CALC (26.0-32.0); MEAN CORPUSCULAR HGB CONC 35.1 g/dL CAL (32.0-36.0); RED BLOOD COUNT 3.49 mill/uL (4.20-5.60); RED CELL DISTRI WIDTH 11.7 % (11.5-15.5)
[2022-02-18 05:52] LABS: HEMATOCRIT 34.5 % (37.0-47.0); HEMOGLOBIN 12.1 g/dl (12.0-16.0)
[2022-02-18 06:08] LABS: ALKALINE PHOSPHATASE 76 u/l (38-126); ANION GAP 15 (6-22 (CALC)); BILIRUBIN, TOTAL 0.3 mg/dL (0.0-1.4); BUN 6 mg/dL (7-17); BUN/CREATININE RATIO 13 (12-20 (CALC)); CARBON DIOXIDE 17 mmol/l (22-30); CHLORIDE 103 mmol/l (95-108); CREATININE 0.5 mg/dL (0.5-1.0); GFR > 60 ML/MIN (>=60 (CALC)); GFR FOR AFR.AMER. > 60 ML/MIN (>=60 (CALC)); POTASSIUM 3.5 mmol/l (3.5-5.1); SGOT/AST 14 u/l (14-36); SODIUM 131 mmol/l (137-146)
[2022-02-18 06:22] LABS: ALBUMIN 2.9 g/dL (3.2-5.0); TOTAL PROTEIN 5.5 g/dL (6.3-8.2)
[2022-02-19] VITALS (18 sets, daily range): BP systolic 109–140; BP diastolic 62–91
[2022-02-19 05:42] LABS: HEMOGLOBIN 12.1 g/dl (12.0-16.0); MEAN CELL VOLUME 98.3 fL CALC (80.0-100.0); MEAN CORPUSCULAR HGB CONC 34.6 g/dL CAL (32.0-36.0); RED BLOOD COUNT 3.56 mill/uL (4.20-5.60); RED CELL DISTRI WIDTH 11.7 % (11.5-15.5)
[2022-02-19 06:14] LABS: BUN 4 mg/dL (7-17); BUN/CREATININE RATIO 10 (12-20 (CALC)); CHLORIDE 100 mmol/l (95-108); CREATININE 0.4 mg/dL (0.5-1.0); GFR > 60 ML/MIN (>=60 (CALC)); GFR FOR AFR.AMER. > 60 ML/MIN (>=60 (CALC)); POTASSIUM 3.4 mmol/l (3.5-5.1); SODIUM 132 mmol/l (137-146)
[2022-02-19 06:18] LABS: ANION GAP 11 (6-22 (CALC)); CARBON DIOXIDE 24 mmol/l (22-30)
[2022-02-19] MEDS ORDERED: DICLEGIS1 TAB PO (08:01)
[2022-02-19] MEDS ORDERED: NOVOLOG FL100 UNIT/M SC (08:03)
== END 2022-02-19 10:30 | disposition home or self-care (01) | DRG 831 ==
LOC: ED 11:01 → ED-I 13:43 → ED 14:20 → ICU 14:21
PROVIDERS: Family Medicine; ADMIT Internal Medicine; ATTEND Internal Medicine
PROC: 05HM33Z Insertion of Infusion Device into Right Internal Jugular Vein, Percutaneous Approach (ICD-10-PCS; principal; 2022-02-17)
DX: O24.011 Pre-existing type 1 diabetes mellitus, in pregnancy, first trimester (principal); E10.10 Type 1 diabetes mellitus with ketoacidosis without coma; O99.341 Other mental disorders complicating pregnancy, first trimester; F98.8 Other specified behavioral and emotional disorders with onset usually occurring in childhood and adolescence; F41.9 Anxiety disorder, unspecified; O99.331 Smoking (tobacco) complicating pregnancy, first trimester; F17.210 Nicotine dependence, cigarettes, uncomplicated; Z3A.01 Less than 8 weeks gestation of pregnancy; Z79.4 Long term (current) use of insulin; Z20.822 Contact with and (suspected) exposure to COVID-19

== ENCOUNTER 2022-03-14 19:38 | Emergency (ER) | payer BC ==
[~2022-03-14] VITALS: Ht 172.7 cm; Wt 61.8 kg
[~2022-03-14 19:38] MED LIST changes: +DICLEGIS1 TAB PO; +LANTUS100 UNIT SC; +NOVOLOG FL100 UNIT/M SC; +ZOLPIDEM5 M1 PO
[2022-03-14 20:41] LABS: HEMATOCRIT 39.9 % (37.0-47.0); HEMOGLOBIN 13.7 g/dl (12.0-16.0); IMMATURE GRANULOCYTES 0.1 % (0.0-5.0); MEAN CELL VOLUME 99.5 fL CALC (80.0-100.0); MEAN CORPUSCULAR HGB 34.2 pG CALC (26.0-32.0); MEAN CORPUSCULAR HGB CONC 34.3 g/dL CAL (32.0-36.0); NEUT# 6.77 thou/uL (2.00-7.15); RED BLOOD COUNT 4.01 mill/uL (4.20-5.60); RED CELL DISTRI WIDTH 11.7 % (11.5-15.5)
[2022-03-14 20:59] LABS: ALKALINE PHOSPHATASE 103 u/l (38-126); ANION GAP 13 (6-22 (CALC)); BUN 8 mg/dL (7-17); BUN/CREATININE RATIO 18 (12-20 (CALC)); CARBON DIOXIDE 27 mmol/l (22-30); CHLORIDE 97 mmol/l (95-108); CREATININE 0.4 mg/dL (0.5-1.0); GFR > 60 ML/MIN (>=60 (CALC)); GFR FOR AFR.AMER. > 60 ML/MIN (>=60 (CALC)); SODIUM 134 mmol/l (137-146)
[2022-03-14 21:00] LABS: ALBUMIN 4.3 g/dL (3.2-5.0); BILIRUBIN, TOTAL 0.5 mg/dL (0.0-1.4); SGOT/AST 26 u/l (14-36); TOTAL PROTEIN 7.2 g/dL (6.3-8.2)
[2022-03-14 21:16] LABS: BETA-HCG, QUANT(RESULT NUMBER) 3339 mIU/mL
[2022-03-14 23:11] LABS: URINE BILIRUBIN - DIPSTICK NEGATIVE (NEGATIVE); URINE BLOOD DIPSTICK LARGE (NEGATIVE); URINE COLOR YELLOW; URINE GLUCOSE - DIPSTICK >=1000 mg/dL (NEGATIVE); URINE KETONE >=80 mg/dL (NEGATIVE); URINE LEUK ESTERASE NEGATIVE (NEGATIVE); URINE NITRITE - DIPSTICK NEGATIVE (Negative); URINE PH 5.5 (4.5-8.0); URINE PROTEIN - DIPSTICK NEGATIVE (NEG-TRACE); URINE UROBILINOGEN - DIPSTICK 0.2 E.U./dL (0.2)
[2022-03-14 23:16] LABS: URINE SQUAMOUS EPITHELIAL CELL MODERATE EPI/hpf (0-FEW)
[2022-03-14 23:31] VITALS: BP 121/71
== END 2022-03-14 23:41 | disposition home or self-care (01) | DRG 779 ==
LOC: ED 19:38
PROVIDERS: Emergency Medicine
DX: O03.9 Complete or unspecified spontaneous abortion without complication (principal); E11.9 Type 2 diabetes mellitus without complications; F41.9 Anxiety disorder, unspecified; F17.200 Nicotine dependence, unspecified, uncomplicated; Z79.4 Long term (current) use of insulin
CPT/HCPCS: J2790